=== PATIENT | female | born 2005 | race Caucasian/White ===

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

== ENCOUNTER 2024-07-26 13:00 | Emergency (ER) | payer OTHER ==
[~2024-07-26] VITALS: Ht 165.1 cm; Wt 54.4 kg
[~2024-07-26 13:00] MED LIST changes: +IBU800 M2 PO; +ONDANSETRON4 MG SL
== END 2024-07-26 14:48 | disposition left against medical advice (07) ==
LOC: ED 13:00
DX: J02.9 Acute pharyngitis, unspecified (principal); R05.9 Cough, unspecified; R52 Pain, unspecified; Z53.21 Procedure and treatment not carried out due to patient leaving prior to being seen by health care provider

== ENCOUNTER 2024-08-12 23:56 | Emergency (ER) | payer OTHER ==
[2024-08-13] MEDS ORDERED: AMOX-CLAV 875-1 EACH PO (00:27)
== END 2024-08-13 00:36 | disposition home or self-care (01) ==
LOC: ED 23:56
DX: J02.8 Acute pharyngitis due to other specified organisms (principal); R13.10 Dysphagia, unspecified

== ENCOUNTER 2024-09-20 15:23 | Emergency (ER) | payer OTHER ==
[~2024-09-20] VITALS: Ht 152.4 cm; Wt 54.4 kg
[~2024-09-20 15:23] MED LIST changes: +AMOX-CLAV 875-1 EACH PO
[2024-09-20] MEDS ORDERED: PREDNISONE20 M1 PO (16:09)
[2024-09-20] MEDS ORDERED: methylPREDNISolone sod succ 125 MG VIAL IM ONE (16:10)
== END 2024-09-20 16:23 | disposition home or self-care (01) ==
LOC: ED 15:23
DX: L23.89 Allergic contact dermatitis due to other agents (principal)

== ENCOUNTER 2025-04-01 11:54 | Emergency (ER) | payer MEDICAID ==
[~2025-04-01] VITALS: Ht 152.4 cm; Wt 68.0 kg
[~2025-04-01 11:54] MED LIST changes: +PREDNISONE20 M1 PO
[2025-04-01 12:25] LABS: BASO # 0.0 10*3/uL (0.0-0.1); BASO % 0.3 % (0.0-1.0); EOS # 0.1 10*3/uL (0.0-0.4); EOS % 0.5 % (1.0-4.0); MEAN CELL VOLUME 85.6 fl (81.0-99.0); MEAN CORPUSCULAR HGB 27.0 pg (27.0-31.0); MEAN PLATELET VOLUME 9.2 fl (9.6-12.3); MONO # 1.0 10*3/uL (0.1-1.0); MONO % 9.2 % (3.0-9.0); NEUT # 8.4 10*3/uL (2.3-7.9); NEUT % 76.1 % (47.0-73.0); NUCLEATED RED BLOOD CELL 0.0 % (0.0-0.0); NUCLEATED RED BLOOD CELL 0.0 10*3/uL (0.0-0.0); PLATELET COUNT AUTOMATED 268 10*3/uL (130-400); RED CELL DISTRI WIDTH 13.5 % (0-14.5)
[2025-04-01 12:28] LABS: BILIRUBIN Negative (Negative); BLOOD Negative (Negative); CLARITY Clear (Clear); COLOR Yellow (Yellow); KETONE Negative (Negative); LEUKO ESTERASE Negative (Negative); NITRITE Negative (Negative); PH 7.5 (4.5-8.0); SPECIFIC GRAVITY 1.010 (1.001-1.030); UROBILINOGEN 0.2 E.U./dl (0.0-1.0)
[2025-04-01 12:39] LABS: BACTERIA 1+; EPITHELIAL CELLS 41-50; RBC 0-2 rbc/hpf (0-2)
[2025-04-01 12:51] LABS: BUN < 5 mg/dl (9-23)
[2025-04-01] MEDS ORDERED: POTASSIUM CHLORIDE 20 MEQ TAB PO ONE (13:00)
== END 2025-04-01 13:07 | disposition home or self-care (01) ==
LOC: ED 11:54
PROVIDERS: Nurse Practitioner Family
DX: O12.03 Gestational edema, third trimester (principal); Z79.899 Other long term (current) drug therapy; Z3A.32 32 weeks gestation of pregnancy

== ENCOUNTER 2025-08-04 13:56 | Emergency (ER) | payer MEDICAID ==
[~2025-08-04] VITALS: Ht 152.4 cm; Wt 59.0 kg
[2025-08-04] MEDS ORDERED: SODIUM CHLORIDE 0.9% 1,000 ML IV ONE (14:20)
[2025-08-04] MEDS ORDERED: Ondansetron Hydrochloride 4 MG/2 ML VIAL IV ONE (14:20)
[2025-08-04 14:31] LABS: BASO # 0.1 10*3/uL (0.0-0.1); BASO % 0.7 % (0.0-1.0); EOS # 0.0 10*3/uL (0.0-0.4); EOS % 0.3 % (1.0-4.0); MEAN CELL VOLUME 81.8 fl (81.0-99.0); MEAN CORPUSCULAR HGB 25.2 pg (27.0-31.0); MEAN PLATELET VOLUME 9.8 fl (9.6-12.3); MONO # 0.7 10*3/uL (0.1-1.0); MONO % 10.1 % (3.0-9.0); NEUT # 4.1 10*3/uL (2.3-7.9); NEUT % 60.0 % (47.0-73.0); NUCLEATED RED BLOOD CELL 0.0 % (0.0-0.0); NUCLEATED RED BLOOD CELL 0.0 10*3/uL (0.0-0.0); PLATELET COUNT AUTOMATED 268 10*3/uL (130-400); RED CELL DISTRI WIDTH 15.9 % (0-14.5)
[2025-08-04 14:41] LABS: BILIRUBIN Negative (Negative); BLOOD Negative (Negative); CLARITY Cloudy (Clear); COLOR Yellow (Yellow); KETONE Negative (Negative); LEUKO ESTERASE 2+ (Negative); NITRITE Negative (Negative); PH 6.5 (4.5-8.0); SPECIFIC GRAVITY 1.025 (1.001-1.030); UROBILINOGEN 0.2 E.U./dl (0.0-1.0)
[2025-08-04 14:55] LABS: EPITHELIAL CELLS 31-40; RBC 0-2 rbc/hpf (0-2)
[2025-08-04 14:55] LABS: BUN 11 mg/dl (9-23); SGPT/ALT 10 U/L (5-49)
[2025-08-04 14:56] LABS: BACTERIA 4+
[2025-08-04] MEDS ORDERED: Ondansetron4 MG PO (15:15)
[2025-08-04] MEDS ORDERED: CEPHALEXIN500 M1 PO (15:15)
== END 2025-08-04 15:50 | disposition home or self-care (01) ==
LOC: ED 13:56
PROVIDERS: Nurse Practitioner Family
DX: N39.0 Urinary tract infection, site not specified (principal)